=== PATIENT | male | born 1930 | race Caucasian/White ===

== ENCOUNTER 2018-08-16 11:35 | Inpatient (IN) ==
[2018-08-16] MEDS ORDERED: NS 1,000 ML IV PRN (12:12)
--- NOTE | 2018-08-16 12:30 | Diag Imaging Result Doc PS360 ---
EXAM: CHEST-PORTABLE 08/16/2018 HISTORY: stroke like symptoms TECHNIQUE: AP upright sitting at 1228 COMMENT: There is a left upper lobe parahilar mass which was not present on 01/01/2017. There is a calcified granuloma in the left lower lobe. In retrospect, the CT of the thoracic spine dated 08/08/2018 demonstrated subcarinal and aorticopulmonary window adenopathy is not stenosis of the left upper lobe bronchus. 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 Electronically signed by Jose Larkin 08/16/2018 12:27 PM
--- NOTE | 2018-08-16 12:32 | EKG Report ---
Test Performed on : 08/16/2018 12:27:05 PM Test Reason : Stroke like symptoms Blood Pressure : / mmHG Vent. Rate : 067 BPM Atrial Rate : 067 BPM P-R Int : 188 ms QRS Dur : 130 ms QT Int : 420 ms P-R-T Axes : 076 -66 050 degrees QTc Int : 443 ms Sinus rhythm. with premature atrial complexes. Right bundle branch block Left anterior fascicular block Bifascicular block Abnormal ECG When compared with ECG of 01-JAN-2017 14:09, No significant change was found Unconfirmed Result
--- NOTE | 2018-08-16 12:33 | Diag Imaging Result Doc PS360 ---
EXAM: CT HEAD W/O CONTRAST 08/16/2018 HISTORY: facial droop TECHNIQUE: This exam was performed using automated exposure control, adjustment of mA or kV according to patient size, and/or use of iterative reconstruction technique. COMMENT: There are calcifications in the basal ganglia bilaterally. There is extensive abnormal lucency in the periventricular white matter particularly in the frontal lobes. There is mild generalized cerebral atrophy. There is no evidence of mass effect, bleed, or abnormal extra-axial fluid collection. Compared to 04/13/2015 the appearance the brain has not changed appreciably. Given the findings on the plain radiograph of the chest, further evaluation with contrast and/or MRI is recommended. IMPRESSION: No definite evidence of acute intracranial disease. Further evaluation with MRI with contrast is recommended. Electronically signed by Jose Larkin 08/16/2018 12:31 PM
[2018-08-16 12:54] LABS: BASO# 0.03 X1000 (0.0-0.2); BASO% 0.5 % (0.0-0.8); EOS% 6.1 % (0.0-10.0); HEMATOCRIT 40.6 % (42.0-52.0); HEMOGLOBIN 13.3 g/dL (14.0-18.0); IMM GRAN# 0.02 X1000 (0.0-0.04); IMM GRAN% 0.3 % (0.0-0.5); LYMPH# 2.07 X1000 (1.2-3.4); LYMPH% 31.5 % (20.5-51.1); MCH 31.2 PG (27-31); MCHC 32.8 g/dL (33-37); MCV 95.3 FL (81-99); MONO# 0.56 X1000 (0.11-0.59); MONO% 8.5 % (1.7-9.3); MPV 10.6 FL (7.4-10.4); NEUT% 53.1 % (42.2-75.2); PLT 216 X1000 (130-400); RBC 4.26 XMIL (4.7-6.1); WBC 6.58 X1000 (4.8-10.8)
[2018-08-16 13:02] LABS: URINE SOURCE CLEAN CATCH
[2018-08-16 13:03] LABS: INR 1.01; PROTIME 14.1 Seconds (11.0-16.0)
[2018-08-16 13:04] LABS: PTT 29.3 Seconds (22.3-41.8)
[2018-08-16 13:08] LABS: BILIRUBIN URINE NEGATIVE (NEGATIVE); BLOOD URINE NEGATIVE (NEGATIVE); COLOR YELLOW; GLUCOSE URINE TRACE mg/dL (NEGATIVE); KETONE URINE NEGATIVE (NEGATIVE); LEUKOCYTES URINE NEGATIVE (NEGATIVE); NITRITE URINE NEGATIVE (NEGATIVE); PROTEIN URINE 100 mg/dL (NEGATIVE); SP GRAVITY URINE 1.017; TURBIDITY URINE CLEAR (CLEAR); UROBILINOGEN URINE NORMAL (NORMAL)
[2018-08-16 13:09] LABS: UR EPITHELIAL CELLS <10 /HPF (<10); URINE BACTERIA NEGATIVE /HPF; URINE RBC <10 /HPF (<10); URINE WBC <10 /HPF (<10)
[2018-08-16 13:23] LABS: UR AMPHETAMINES QUAL NONE DETECTED (NONE DETECT); UR BARBITUATES QUAL NONE DETECTED (NONE DETECT); UR BENZODIAZEPIN QUAL NONE DETECTED (NONE DETECT); UR CANNABINOIDS QUAL NONE DETECTED (NONE DETECT); UR COCAINE QUAL NONE DETECTED (NONE DETECT); UR METHADONE QUAL NONE DETECTED (NONE DETECT); UR OPIATES QUAL NONE DETECTED (NONE DETECT); UR OXYCODONE QUAL PRESUMPTIVE POSITIVE (NONE DETECT); UR PCP QUAL NONE DETECTED (NONE DETECT)
[2018-08-16 13:36] LABS: AGAP 9; ALB/GLOB RATIO 1.4; ALBUMIN 3.9 g/dL (3.5-5.0); ALKALINE PHOSPHATASE 41 U/L (32-122); BUN 19 mg/dL (8-22); CHLORIDE 104 mmol/L (98-107); COSMO 285; CREATININE 1.1 mg/dL (0.7-1.2); ESTIMATED GFR > 60; GLUCOSE 159 mg/dL (70-104); GOT 33 U/L (10-34); GPT 20 U/L (10-44); POTASSIUM 4.6 mmol/L (3.5-5.1); SODIUM 140 mmol/L (136-145); TCO2 27 mmol/L (25-35); TOTAL BILIRUBIN 0.57 mg/dL (0.20-1.00); TOTAL PROTEIN 6.6 g/dL (6.3-8.3)
--- NOTE | 2018-08-16 14:30 | PROVIDER DOCUMENTATION ---
This chart was entered by Su Amador Scribe, acting as scribe for José Miguel Ellis MD. HPI-Neurological Disorder - General Chief Complaint: Stroke-Like Symptoms Stated Complaint: POSSIBLE STOKE Time Seen by Provider: 08/16/18 11:39 Source: patient, family (daughter) Allergies/Adverse Reactions: Patient Allergies Allergy/AdvReac Type Severity Reaction Status Date / Time No Known Allergies Allergy Verified 08/16/18 12:13 Home Medications: Home Medication List Medication Instructions Recorded Confirmed Last Taken Type Aspirin 81 mg PO DAILY 12/07/13 08/16/18 08/16/18 History Fenofibrate 160 mg PO DAILY 12/07/13 08/16/18 08/16/18 History Glimepiride 4 mg PO BID 12/07/13 08/16/18 08/16/18 History Oxycodone HCl/Acetaminophen 10 mg PO Q6H PRN PRN 12/07/13 08/16/18 01/01/17 History [Oxycodon-Acetaminophen 7.5-325] Potassium Chloride 20 meq PO BID 12/07/13 08/16/18 08/16/18 History SIMVAstatin [Zocor] 40 mg PO QHS 12/07/13 08/16/18 08/15/18 History Trazodone [Desyrel] 200 mg PO QHS 12/07/13 08/16/18 08/16/18 History Losartan Potassium 100 mg PO DAILY #30 tablet 01/04/14 08/16/18 08/16/18 Rx Metoprolol [Lopressor] 25 mg PO BID 04/14/15 08/16/18 08/16/18 History Montelukast [Singulair] 10 mg PO DAILY 04/14/15 08/16/18 08/16/18 History Tizanidine [Zanaflex] 2 mg PO QHS 01/01/17 08/16/18 08/15/18 History Fexofenadine [Luz] 1 tab PO DAILY 08/16/18 08/16/18 08/16/18 History Furosemide 1 tab PO DAILY 08/16/18 08/16/18 Unknown History Gabapentin 1 tab PO DAILY 08/16/18 08/16/18 08/16/18 History Hydrochlorothiazide 1 tab PO DAILY 08/16/18 08/16/18 08/16/18 History Omeprazole [Prilosec] 1 tab PO DAILY 08/16/18 08/16/18 08/16/18 History - History of Present Illness-Neuro Nature of Presenting Problem: 87 yowm presents to the ed with c/o aphasia, drooling from left side of mouth, abdominal pain with nausea onset 3 days prior with intermittent of sx. pt has chronic pain, allergies and [place]. pt on exam has no difficulty of speechand does have mild flattening of facial groove on rt side. no drooling is seen. pt is nontoxic in appearance ` Headache Location: reports: global (chronic per pt. is no worse then normal [place]) Severity: reports: mild Onset/Duration: reports: 3 days ago Timing: reports: intermittent Context: reports: impaired speech Character of Altered Mental Status: reports: trouble concentrating Any recent trauma/injury?: reports: none Character of Deficits: reports: impaired speech New weakness or altered sensation location:: reports: none Cognitive Baseline: alert, oriented x3 Gait Baseline: walks without assistance Associated Symptoms: reports: short of breath, headache, nausea. denies: decreased ability to walk or stand, chest pain, neck/back pain, fever/chills, numbness in legs/feet, paresthesia, diaphoretic, slurred speech (aphasia), vomiting, weakness Similar Symptoms Previously?: No Recently seen or treated by another doctor?: No Review of Systems - Adult - REVIEW OF SYSTEMS - ADULT Constitutional: denies: chills, fever Eyes: reports: no symptoms reported Ears, Nose, Mouth & Throat: reports: no symptoms reported Cardiovascular: reports: irregular heart rate. denies: chest pain, palpitations Respiratory: reports: see HPI, shortness of breath. denies: cough, wheezing Gastrointestinal: reports: see HPI, abdominal pain, nausea. denies: diarrhea, vomiting Genitourinary: reports: no symptoms reported Musculoskeletal: denies: back pain, neck pain Integumentary: reports: no symptoms reported Neurological: reports: see HPI, headache/migraines (chronic). denies: ataxia, dizziness/vertigo, loss of balance, slurred speech (apasia), syncope, tremors Psychiatric: reports: no symptoms reported Endocrine: reports: no symptoms reported Hematologic/Lymphatic: reports: no symptoms reported Allergic/Immunologic: reports: no symptoms reported All Other Systems: Reviewed and Negative Past History - Adult - PAST MEDICAL HISTORY-ADULT Review of Records: reports: Old Records Reviewed, Nursing Assessment Review, Medications Reviewed, Social history reviewed & non-contributory. Major Childhood Illnesses: reports: denies history Cardiovascular: reports: CAD, HTN, hyperlipidemia Respiratory: reports: denies history Gastrointestinal: reports: GERD Genitourinary: reports: denies history Musculoskeletal: reports: arthritis, chronic pain, neck/back injury Neurological: reports: denies history Psychiatric: reports: denies history Endocrine/Immune: reports: Diabetes Diabetes Type: Type 2 Other Conditions: reports: deaf/hard of hearing - PRIOR SURGERIES/PROCEDURES Surgical/Procedure History: reports: cholecystectomy, back/neck (back x2) - PRIOR HOSPITALIZATIONS Prior Hospitalizations: reports: for similar symptoms - IMMUNIZATION STATUS Childhood Immunizations: See Nurse Assessment Flu Vaccine: See Nurse Assessment - FAMILY HISTORY Family History: reviewed, not pertinent - SOCIAL HISTORY Smoking: quit greater than 1 year Substance Use: denies Alcohol Use Frequency: never Living Situation: alone Physical Exam- Neurological - Physical Exam-Neuro Initial Vital Signs Reviewed: Yes General Appearance: appears well, alert, no apparent distress, obese Eye Exam: bilateral eye: normal inspection, PERRL, EOMI HENMT: normocephalic/atraumatic, moist mucous membranes, normal ENT inspection Head Injury: no evidence of injury Neck: non-tender, full range of motion, supple Respiratory: chest non-tender, lungs clear, normal breath sounds Cardiovascular: no JVD, irregularly irregular Abdominal Exam: normal bowel sounds, non tender, soft Lymphatic: no adenopathy Extremity: normal range of motion, non-tender, normal gait, normal inspection, normal capillary refill, 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 stable 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 Exam: normal hearing (hard of hearing but at baseline), normal speech (pt had aphasia yesterday and this am but has resolved on exam), PERRL Coordination/Gait: normal finger to nose Motor/Sensory: no motor deficit, no sensory deficit, no pronator drift Neurologic: 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 II-XII nml as tested, grossly normal, no motor/sensory deficits Integumentary: normal color, normal turgor, warm/dry Psych/Mental Status: normal mood/affect, normal thought content, normal thought process, oriented x 3 - Glascow Coma Scale Best Eye Response: (4) open spontaneously Best Verbal Response: (5) oriented Best Motor Response: (6) obeys commands Total Glascow Score: 15 Progress - PLAN OF CARE/RESULTS Progress/Plan/Lab Results: Vital Signs - 8 hr 08/16/18 11:37 08/16/18 11:53 08/16/18 11:54 Temperature 97.8 F Pulse Rate 63 Respiratory Rate 18 Blood Pressure 189/81 191/87 O2 Sat by Pulse Oximetry 96 97 96 Laboratory Results - last 24 hr 08/16/18 08/16/18 08/16/18 12:39 12:39 12:39 WBC 6.58 RBC 4.26 L Hgb 13.3 L Hct 40.6 L MCV 95.3 MCH 31.2 H MCHC 32.8 L RDW Std Deviation 13.0 Plt Count 216 MPV 10.6 H Immature Gran % (Auto) 0.3 Neut % (Auto) 53.1 Lymph % (Auto) 31.5 [place] % (Auto) 8.5 Eos % (Auto) 6.1 Baso % (Auto) 0.5 Immature Gran # (Auto) 0.02 Neut # (Auto) 3.50 Lymph # (Auto) 2.07 [place] # (Auto) 0.56 Eos # (Auto) 0.40 Baso # (Auto) 0.03 PT 14.1 INR 1.01 PTT (Actin FS) 29.3 Sodium 140 Potassium 4.6 Chloride 104 Carbon Dioxide 27 Anion Gap 9 BUN 19 Creatinine 1.1 Estimated GFR/1.73 m2 > 60 BUN/Creatinine Ratio 17 Glucose 159 H POC Glucose Calculated Osmolality 285 Calcium 9.0 Total Bilirubin 0.57 AST 33 ALT 20 Alkaline Phosphatase 41 Troponin T Total Protein 6.6 Albumin 3.9 Globulin 2.7 Albumin/Globulin Ratio 1.4 Urine Source Urine Color Urine Turbidity Urine pH Ur Specific [place] Urine Protein Ur Glucose (Stick) Ur Ketones (Stick) Urine Blood Urine Nitrite Urine Bilirubin Urobilinogen Dipstick Urine Leukocytes Urine WBC (Auto) Urine RBC (Auto) U Epithel Cells (Auto) Urine Bacteria (Auto) Urine Opiates Screen Ur Oxycodone Screen Ur Methadone, Qual Ur Barbiturates Screen Ur Phencyclidine Scrn Ur Amphetamines Screen U Benzodiazepines Scrn Urine Cocaine Screen U Cannabinoids Screen 08/16/18 08/16/18 08/16/18 12:39 12:45 12:55 WBC RBC Hgb Hct MCV MCH MCHC RDW Std Deviation Plt Count MPV Immature Gran % (Auto) Neut % (Auto) Lymph % (Auto) [place] % (Auto) Eos % (Auto) Baso % (Auto) Immature Gran # (Auto) Neut # (Auto) Lymph # (Auto) [place] # (Auto) Eos # (Auto) Baso # (Auto) PT INR PTT (Actin FS) Sodium Potassium Chloride Carbon Dioxide Anion Gap BUN Creatinine Estimated GFR/1.73 m2 BUN/Creatinine Ratio Glucose POC Glucose 157 H Calculated Osmolality Calcium Total Bilirubin AST ALT Alkaline Phosphatase Troponin T < 0.010 Total Protein Albumin Globulin Albumin/Globulin Ratio Urine Source CLEAN CATCH Urine Color YELLOW Urine Turbidity CLEAR Urine pH 7.0 Ur Specific [place] 1.017 Urine Protein 100 A Ur Glucose (Stick) TRACE Ur Ketones (Stick) NEGATIVE Urine Blood NEGATIVE Urine Nitrite NEGATIVE Urine Bilirubin NEGATIVE Urobilinogen Dipstick NORMAL Urine Leukocytes NEGATIVE Urine WBC (Auto) <10 Urine RBC (Auto) <10 U Epithel Cells (Auto) <10 Urine Bacteria (Auto) NEGATIVE Urine Opiates Screen Ur Oxycodone Screen Ur Methadone, Qual Ur Barbiturates Screen Ur Phencyclidine Scrn Ur Amphetamines Screen U Benzodiazepines Scrn Urine Cocaine Screen U Cannabinoids Screen 08/16/18 12:55 WBC RBC Hgb Hct MCV MCH MCHC RDW Std Deviation Plt Count MPV Immature Gran % (Auto) Neut % (Auto) Lymph % (Auto) [place] % (Auto) Eos % (Auto) Baso % (Auto) Immature Gran # (Auto) Neut # (Auto) Lymph # (Auto) [place] # (Auto) Eos # (Auto) Baso # (Auto) PT INR PTT (Actin FS) Sodium Potassium Chloride Carbon Dioxide Anion Gap BUN Creatinine Estimated GFR/1.73 m2 BUN/Creatinine Ratio Glucose POC Glucose Calculated Osmolality Calcium Total Bilirubin AST ALT Alkaline Phosphatase Troponin T Total Protein Albumin Globulin Albumin/Globulin Ratio Urine Source Urine Color Urine Turbidity Urine pH Ur Specific [place] Urine Protein Ur Glucose (Stick) Ur Ketones (Stick) Urine Blood Urine Nitrite Urine Bilirubin Urobilinogen Dipstick Urine Leukocytes Urine WBC (Auto) Urine RBC (Auto) U Epithel Cells (Auto) Urine Bacteria (Auto) Urine Opiates Screen NONE DETECTED Ur Oxycodone Screen PRESUMPTIVE POSITIVE A Ur Methadone, Qual NONE DETECTED Ur Barbiturates Screen NONE DETECTED Ur Phencyclidine Scrn NONE DETECTED Ur Amphetamines Screen NONE DETECTED U Benzodiazepines Scrn NONE DETECTED Urine Cocaine Screen NONE DETECTED U Cannabinoids Screen NONE DETECTED Orders Category Date Time Status Cardiac Monitoring DIRECTED Care 08/16/18 12:12 Active Finger Stick Blood Sugar (ED) DIRECTED Care 08/16/18 12:12 Active Misc. NRSG Communication Order DIRECTED Care 08/16/18 12:12 Active Saline Loc NOW Care 08/16/18 12:12 Active CHEST-PORTABLE [RAD] Stat Exams 08/16/18 12:[address] HEAD W/O CONTRAST [CT] Stat Exams 08/16/18 12:15 Completed CBC WITH ELECTRONIC DIFF [HEME] Stat Lab 08/16/18 12:39 Completed COMPREHENSIVE METABOLIC PANEL [CHEM] Stat Lab 08/16/18 12:39 Completed PROTIME WITH INR [COAG] Stat Lab 08/16/18 12:39 Completed PTT [COAG] Stat Lab 08/16/18 12:39 Completed TROPONIN T Stat Lab 08/16/18 12:39 Completed URINALYSIS W/POSS RFLX CULT [URINALYSIS] Stat Lab 08/16/18 12:55 Completed URINE DRUG SCREEN Stat Lab 08/16/18 12:55 Completed 0.9% Sodium Chloride Inj [Ns] 1,000 ml Med 08/16/18 12:12 Active IV 75 mls/hr EKG [EKG] Stat Ther 08/16/18 12:12 Draft Result Diagrams: 08/16/18 12:39 08/16/18 12:39 - REASSESSMENT Reassessment #1 Time Reassessed: 12:33 (pt is in no distress) Status: improving Reassessment #2 Time Reassessed: 14:02 (pt is resting in bed) Status: unchanged - EKG 1 Time of EKG reading by physician:: 12:27 EKG Read and Signed by:: José Miguel Ellis EKG Interpretation (*Must complete 3 of following elements*): Abnormal Rate: 67 Rhythm: SR with PAC [place]: normal QRS: RBB, other (LAFB) NM Interval: normal ST Wave: normal Comments: bifascicular block - XRAY 1 XRAY: Bilateral XRAY Study: Chest Impression: See EMR Report (EXAM: CHEST-PORTABLE 08/16/2018 HISTORY: stroke like symptoms TECHNIQUE: AP upright sitting at 1228 COMMENT: There is a left up per lobe parahilar mass which was not present on 01/01/2017. There is a calcified granuloma in the left lower lobe. In retrospect, the CT of the thoracic spine dated 08/08/2018 demonstrated subcarinal and aorticopulmonary window adenopathy is not stenosis of the left upper lobe bronchus. 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 Electronically signed by Jose Larkin 08/16/2018 12:27 PM 08/16/18 1227 Interpreting Physician: Jose Larkin MD Dictated Date/Time: 08/16/18 1223 cc: José Miguel Ellis MD; Adrianne Thorpe MD) - CT/MRI 1 CT Study: Head Impression: See EMR Report (EXAM: CT HEAD W/O CONTRAST 08/16/2018 HISTORY: facial droop TECHNIQUE: This exam was performed using automated exposure control, adjustment of mA or kV according to patient size, and/or use of iterative reconstruction technique. COMMENT: There are calcifications in the basal ganglia bilaterally. There is extensive abnormal lucency in the periventricular white matter particularly in the frontal lobes. There is mild generalized cerebral atrophy. There is no evidence of mass effect, bleed, or abnormal extra-axial fluid collection. Compared to 04/13/2015 the appearance the brain has not changed appreciably. Given the findings on the plain radiograph of the chest, further evaluation with contrast and/or MRI is recommended. IMPRESSION: No definite evidence of acute intracranial disease. Further e valuation with MRI with contrast is recommended. Electronically signed by Jose Larkin 08/16/2018 12:31 PM 08/16/18 1231 Interpreting Physician: Jose Larkin MD Dictated Date/Time: 08/16/18 1229 cc: José Miguel Ellis MD; Adrianne Thorpe MD) - CONSULTS/PCP/HOSPITALIST Notification #1 *Consult/PCP/Hospitalist*: hospitalist Time Discussed: 14:18 Consult Disposition: Admit Departure - Departure Date of Disposition Decision: 08/16/18 Time of Disposition Decision: 13:00 DIAGNOSIS: Lung mass, Brain metastasis Disposition: ADMITTED INPATIENT 09 Certified Medical Emergency: Emergent Condition: Good Referrals and Follow-Ups: Adrianne Thorpe MD [Primary Care Provider] - - Critical Care Note This patient required my direct & personal management of CC.: No Attestation - Physician/ MARYCHUY Attestation Patient care was provided by Advanced Practice Provider:: No The physician spent face to face time with patient:: Yes Advanced Practice Provider documentation review:: Supervising physician onsite and consulted in the evaluation and care of this patient. The physician did have a face to face encounter with the patient. - NIH Stroke Scale NIH Type: Initial Evaluation Level of Consciousness: 0-Alert LOC Questions (ask month and age): 0-Answers Both Correctly LOC Commands (ask to open & close eyes;make a fist, let go): 0-Obeys Both Correctly Best Gaze (horizontal eye movement): 0-Normal Visual (use finger movement, counting or visual threat): 0-No Visual Loss Facial Palsy (show teeth or raise eyebrows & close eyes tght: 1-Minor Paralysis Motor Function-left arm: 0-Normal Motor Function-right arm: 0-Normal Motor Function-left le-Normal Motor Function-right le-Normal Limb Ataxia(mpinni-wkgm-dwxjcr, or heel to mccain): 0-No Ataxia Sensory(pin prick to face,arms,trunk,legs-compare side/side): 0-No Ataxia Best Language(name item/read sentence.Ex-Down to Earth): 0-No Aphasia Dysarthria(Pt read words or say words Ex.Mama,Tip-Top,Thanks: 1-Mild-Mod Slurring Words Extinction and Inattention: 0-Normal Stroke tPA Guidelines - Inclusion Criteria for IV tPA 18 years old or older: Yes Ischemic stroke with measurable deficit: Yes Onset <3 hours ago *OR* 3-4.5 hours ago: No - Exclusion Criteria for IV tPA Evidence of intracranial hemorrhage on CT: No Presentation suggest SAH: No CT reveals defined area of hypodensity: Yes This chart was documented by the indicated scribe, (Su Amador Scribe) and accurately reflects the services I performed and decisions made by me, José Miguel Ellis MD, as attested by the provider's signature.
--- NOTE | 2018-08-16 15:27 | Diag Imaging Result Doc PS360 ---
CT THORAX W/CONTRAST - 08/16/2018 INDICATION: lung mass COMPARISON: None FINDINGS: There is a large left hilar mass. This measures 7.6 x 6.3 cm. There is left paratracheal and pretracheal lymphadenopathy. There is also anterior and superior mediastinal lymphadenopathy. Upper abdominal images are unremarkable. There are apparent cholecystectomy clips. There is a calcified granuloma in the left lower lobe. There is diffuse COPD with chronic bronchitis. There is a faint nodular infiltrate in the left upper lobe, that measures about 9 mm. There is also a hazy groundglass nodule in the right upper lobe. This measures only about 7 mm. There are moderate degenerative changes of the spine. No acute or suspicious bony lesion. IMPRESSION: Advanced primary lung cancer. This exam was performed using automated exposure control, adjustment of mA or kV according to patient size, and/or use of iterative reconstruction technique Electronically signed by Marcial Wong 08/16/2018 3:24 PM
--- NOTE | 2018-08-16 15:38 | Diag Imaging Result Doc PS360 ---
MRI BRAIN W/WO CONTRAST - 08/16/2018 INDICATION: r/o mass COMPARISON: Head CT from earlier today FINDINGS: There is a small focal area of restricted diffusion in the left insular cortex. This likely indicates a small recent infarction. There is diffuse cerebral atrophy and advanced periventricular white matter chronic microvascular disease. No intracranial mass or hemorrhage. No abnormal contrast enhancement. IMPRESSION: 1. Tiny recent infarction in the left insular cortex. 2. Moderately advanced cerebral atrophy and chronic microvascular disease. Electronically signed by Marcial Wong 08/16/2018 3:36 PM
[2018-08-16] MEDS ORDERED: ZOFRAN IV PRN (16:17)
[2018-08-16] MEDS ORDERED: MORPHINE IV PRN (16:17)
[2018-08-16] MEDS: PERCOCET-10 PO PRN (17:15)
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
--- NOTE | 2018-08-16 17:57 | HISTORY AND PHYSICAL ---
PRIMARY CARE PROVIDER: Dr. Thorpe. CHIEF COMPLAINT: Slurred speech. HISTORY OF PRESENT ILLNESS: Mr. Robert Vega is an 87-year-old male with a medical history of diabetes mellitus type 2, GERD, hypertension, anxiety disorder, and apparently a left- sided stroke in 1985, who comes in with complaints of speech difficulty since yesterday evening. He has not noticed any other neurological symptoms except for he has a left frontal headache. An MRI revealed that he does have a small left-sided infarct, and it is potentially causing him to stutter with some of his words. Otherwise, there are no other neurological changes. We also found on a chest x-ray that he has a left upper lobe bronchogenic carcinoma that was found on chest x-ray and confirmed with CAT scan. He has complained of a thick cough that he cannot really seem to get phlegm up. He said that has been going on for at least 3 or 4 years, shortness of breath for 3 or 4 years. He has also noted some on and off wheezing for the last year. We will admit him to further evaluate the mass that was found and work him up for stroke. PAST MEDICAL HISTORY: 1. Diabetes mellitus, type 2. 2. Hypertension. 3. Anxiety disorder. 4. Hyperlipidemia. 5. Left CVA without residual 1986. 6. GERD. 7. Skin cancers. SURGICAL HISTORY: 1. Three back surgeries. 2. Cholecystectomy. 3. Bilateral cataract surgery. SOCIAL HISTORY: Quit smoking 30+ years ago. Also quit drinking 30+ years ago but prior to that he was a 2-1/2 pack per day smoker since the age of 10 and was a weekend drinker, but essentially no alcohol in the last 30 years. Denies any illicit drug use. He lives at home alone. He is essentially able to perform all ADLs, except he does not drive any more. FAMILY HISTORY: On his mother's side of the family no medical conditions that he can remember. His father had coronary disease and high blood pressure. ALLERGIES: No known drug allergies. HOME MEDICATIONS: 1. Trazodone 200 mg p.o. nightly. 2. Zanaflex 2 mg p.o. nightly. 3. Simvastatin 40 mg p.o. nightly. 4. Luz 180 mg p.o. daily. 5. Aspirin 81 mg p.o. daily. 6. Fenofibrate 160 mg p.o. daily. 7. Lasix 40 mg p.o. daily. 8. Neurontin 300 mg p.o. daily. 9. Glimepiride 4 mg p.o. twice daily. 10. Hydrochlorothiazide 25 mg p.o. daily. 11. Lopressor 25 mg p.o. twice daily. 12. Percocet 10 p.o. every 6 hours p.r.n. 13. Potassium chloride 20 mEq p.o. twice daily. 14. Prilosec 40 mg p.o. daily. 15. Singulair 10 mg p.o. daily. 16. Losartan potassium 100 mg p.o. daily. REVIEW OF SYSTEMS: A 14 point review of systems is complete and all are negative except those mentioned above HPI. He has had right shoulder pains. He has had a weight loss of 25+ pounds over the last 6 months. He does have shortness of breath. He has a left frontal headache, occasional chest pain, wheezes for year, a cough that is difficult to produce phlegm, but occasionally it is white and that has been going on for 3 to 4 years. He does have the occasional nocturnal sweats. He freezes most of the time. He has nausea frequently. He denies any bowel problems. PHYSICAL EXAMINATION: VITAL SIGNS: Temperature 97.8 degrees, heart rate 79, respiratory rate 20, blood pressure 176/80, O2 saturation 98% on room air. GENERAL: Mr. Robert Vega is an 87-year-old male, who is in no acute distress and is able answer questions appropriately. HEENT: Atraumatic, normocephalic. Pupils equal, round, and reactive to light. Extraocular movements intact. Mucous membranes are moist. NECK: Trachea midline. CARDIOVASCULAR: S1, S2. Regular rate and rhythm. No rubs, gallops, murmurs. No lower extremity edema. +2 dorsalis and radial pulses. Negative JVD or carotid bruits. PULMONARY: Decreased in the bases. Mild wheezing noted. No accessory muscle use or work of breathing. GASTROINTESTINAL: Soft, nontender, nondistended. Positive bowel sounds x4. EXTREMITIES: Moves all extremities equally with decreased range of motion. NEUROLOGICAL: A and O x3. Follows commands. Sensory is intact. He does have a stutter with his speech, but no aphasia noted. SKIN: Warm, dry, intact. There is an abrasion on the left wrist area. LABORATORY DATA: White blood cells 6000, hemoglobin 13, hematocrit 40, platelet count 216,000. INR is 1.01, PTT 29.3. Sodium 140, potassium 4.6, BUN 19, creatinine is 1.1, glucose 159, calcium 9.0, bilirubin 0.57, AST 33, ALT 20. Troponin less than 0.01. Albumin 3.9. Carcinoembryonic antigen 2.10. Urinalysis 100 protein. Urine drug screen positive for oxycodone. IMAGING: Chest x-ray: Bronchogenic carcinoma in the left upper lobe. Head CT: No definite evidence of acute intracranial disease. Brain MRI: Tiny recent infarction in the left insular cortex. Moderately advanced cerebral atrophy and chronic microvascular disease. Chest CT: Advanced primary lung cancer. ASSESSMENT AND PLAN: 1. Recent tiny cerebral infarction located in the left insular cortex with associated speech difficulties and left frontal headache. We will follow up on neurological checks, lipid panel, echocardiogram. We will keep him on Lipitor, aspirin, and we will allow for permissive hypertension. We will also do some IV fluid hydration. 2. A new left upper lobe lung mass with high suspicion for carcinoma. Pulmonology Dr. Arce has been consulted. The patient denies history of COPD. He quit smoking over 30 years ago, but he was a pretty heavy smoker since the age of 10 prior to that. He is having difficulty getting a productive cough up. He is unable to cough it out so we will have Mucinex. We will do albuterol/Atrovent nebulizers every 6 hours while awake. Singulair for allergies. Oxygen as needed. We will likely need a biopsy of the mass to determine what it is specifically. 3. Diabetes mellitus, type 2. We will do pattern blood glucoses, sliding scale insulin. 4. Gastroesophageal reflux disease. Continue with proton pump inhibitor. 5. Hyperlipidemia. Continue statin. 6. Hypertension. Holding the hydrochlorothiazide for now to allow for permissive hypertension. 7. Deep venous thrombosis prophylaxis. SCDs. Dictated by DENISE Edwards for Bobby Vogel MD cc: DENISE Edwards MD
[2018-08-16] MEDS ORDERED: LOPRESSOR PO SCH (21:00)
[2018-08-16] MEDS ORDERED: ZOCOR PO SCH (21:00)
[2018-08-16] MEDS ORDERED: ZANAFLEX PO SCH (21:00)
[2018-08-16] MEDS ORDERED: DESYREL PO SCH (21:00)
[2018-08-16] MEDS ORDERED: LIPITOR PO SCH (21:00)
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
[2018-08-16] MEDS: MUCINEX PO SCH (21:36)
[2018-08-16] MEDS: AMARYL PO SCH (21:37)
[2018-08-16] MEDS: HUMULIN R SUBQ SCH (21:37)
[2018-08-16] MEDS: DUONEB (A & A) INH SCH (22:30)
[2018-08-17] MEDS: PERCOCET-10 PO PRN ×2 (05:26→11:40)
[2018-08-17] MEDS: HUMULIN R SUBQ SCH ×2 (06:04→11:05)
--- NOTE | 2018-08-17 06:55 | EKG Report ---
Test Performed on : 08/16/2018 8:07:09 PM Test Reason : A. Flutter per tele Blood Pressure : / mmHG Vent. Rate : 078 BPM Atrial Rate : 078 BPM P-R Int : 154 ms QRS Dur : 134 ms QT Int : 398 ms P-R-T Axes : 000 -75 045 degrees QTc Int : 453 ms Sinus rhythm. with premature atrial complexes. Right bundle branch block Left anterior fascicular block Bifascicular block ST depression in Inferior leads Abnormal ECG When compared with ECG of 16-AUG-2018 12:27, (Unconfirmed) ST now depressed in Inferior leads Confirmed by Miquel Gautam MD ([id number]) on 08/17/2018 6:01:24 PM
[2018-08-17] MEDS ORDERED: PRILOSEC PO SCH (07:00)
[2018-08-17 08:30] LABS: BASO# 0.04 X1000 (0.0-0.2); BASO% 0.5 % (0.0-0.8); EOS# 0.18 X1000 (0.0-0.7); EOS% 2.4 % (0.0-10.0); HEMOGLOBIN 11.8 g/dL (14.0-18.0); IMM GRAN# 0.02 X1000 (0.0-0.04); IMM GRAN% 0.3 % (0.0-0.5); LYMPH# 2.26 X1000 (1.2-3.4); LYMPH% 30.7 % (20.5-51.1); MCH 31.1 PG (27-31); MCHC 32.8 g/dL (33-37); MONO# 0.82 X1000 (0.11-0.59); MONO% 11.1 % (1.7-9.3); MPV 10.9 FL (7.4-10.4); NEUT# 4.05 X1000 (1.4-6.5); PLT 214 X1000 (130-400); RBC 3.79 XMIL (4.7-6.1); RDW 13.1 % (11.5-14.5); WBC 7.37 X1000 (4.8-10.8)
[2018-08-17 08:46] LABS: AGAP 9; BUN 17 mg/dL (8-22); CALCIUM 8.4 mg/dL (8.8-10.2); CHLORIDE 106 mmol/L (98-107); CHOLESTEROL 93 mg/dL (0-200); COSMO 281; ESTIMATED GFR > 60; GLUCOSE 107 mg/dL (70-104); HDL 31 mg/dL (35-55); LDL 44 mg/dL; POTASSIUM 3.7 mmol/L (3.5-5.1); SODIUM 140 mmol/L (136-145); TCO2 25 mmol/L (25-35); TRIGLYCERIDES 88 mg/dL (39-160); VLDL 18 mg/dL
[2018-08-17] MEDS ORDERED: COZAAR PO SCH (09:00)
[2018-08-17] MEDS ORDERED: LOFIBRA PO SCH (09:00)
[2018-08-17] MEDS ORDERED: ALLEGRA PO SCH (09:00)
[2018-08-17] MEDS ORDERED: NEURONTIN PO SCH (09:00)
[2018-08-17] MEDS ORDERED: ASPIRIN PO SCH (09:00)
[2018-08-17] MEDS ORDERED: SINGULAIR PO SCH (09:00)
[2018-08-17] MEDS ORDERED: LASIX PO SCH ×2 (09:00→14:00)
[2018-08-17] MEDS: AMARYL PO SCH (09:53)
[2018-08-17] MEDS: MUCINEX PO SCH (09:53)
[2018-08-17] MEDS: DUONEB (A & A) INH SCH ×2 (10:05→15:09)
[2018-08-17 11:39] VITALS: BP 141/49
--- NOTE | 2018-08-17 11:40 | CONSULTATION ---
DATE OF CONSULTATION: 08/17/2018 Mr. Vega is 87 years old, and there is clinical and imaging evidence of stroke. History from the patient is that he noticed a little bit of trouble finding his words about 36 hours ago. The next morning, symptoms were similar but got worse through the day and he presented to the hospital. This morning, he is much improved, not quite back to normal. Daughter at the bedside reports problems yesterday were prominent and this morning she cannot identify definite trouble with communication. He did not ever have trouble understanding what was said to him. He reports chronic poor vision, with a sense of "skim over my eyes" transiently yesterday. He did not notice focal loss of visual field or a sense that skim was over one eye only. He has had some headaches recently, but headache was no worse than usual yesterday. There was no facial asymmetry, trouble with chewing or swallowing, focal weakness in the limbs. He believes that his gait was a little bit more unsteady than baseline yesterday. He reports "mini stroke" diagnosed about 40 years ago when he had transient facial droop, possibly on the left side. Otherwise, there is no history of stroke. He has never had any other neurologic event. He has not had recent head injury. He does not use ethanol. He quit smoking cigarettes more than 30 years ago. He had been advised to take aspirin in the past but was not taking his aspirin regularly recently. He was taking all of his other medicines correctly, by his report. Workup here includes brain MRI done with and without contrast showing tiny recent left insular infarction. He has had carotid ultrasound, but I do not see that report. Computer shows carotid ultrasound was normal in 2014. Initial systolic blood pressures were 180s-190s. Systolic blood pressures have ranged 130s-170s in the last 12 hours or so. On exam, Mr. Vega is awake, alert, and attentive. He seems appropriate. He is hard of hearing but communicates well when he can hear me. Speech is not significantly dysarthric. Language function is intact on bedside testing. I could not identify a definite language deficit. Remote memory is good. He is oriented. I did not test his cognitive function further. Head and neck are unremarkable. Visual cueva are full, tested grossly by confrontational finger counting. Facial motility is symmetric. Facial sensation is intact. Gag is intact. Tongue is midline. Shoulder shrug is good bilaterally. Strength is normal in the arms and legs. He did well on [id number] testing bilaterally. Reflexes are absent at the ankles, 1+ symmetrically at the wrists. I did not test his gait. IMPRESSION: Clinical and imaging evidence of small acute dominant subcortical left hemisphere infarction. History sounds like predominantly expressive dysphasia, with near- complete resolution now. His risk factors include age, hypertension, diabetes mellitus, dyslipidemia, and possible prior stroke. His visual symptoms are a little bit worrisome for amaurosis, although he did not report definite monocular symptoms. If carotid report is unremarkable, I will not have any further suggestion from neurologic standpoint. I encouraged him to be aggressive with management of his risk factors, to resume daily aspirin, and to keep followup with his primary clinic. I will be glad to see him again if needed. Thank you for asking Neurology to see Mr. Vega. cc: MD OWEN Chapa III
--- NOTE | 2018-08-17 15:40 | DISCHARGE SUMMARY ---
ADMISSION DATE: 08/16/2018 DISCHARGE DATE: 08/17/2018 SUBJECTIVE: The patient feels okay. No major complaints. It does sound like he wants to get treatment so we will continue to follow. OBJECTIVE: Vital Signs: Blood pressure is 141/49, heart rate of 71, respiratory rate 18, temperature 98.1 degrees. Cardiovascular: Regular rate and rhythm. Pulmonary: Bilateral breath sounds clear to auscultation. Gastrointestinal: Soft, nontender, nondistended. Bowel sounds were positive. LABORATORY DATA: White count is 7, hemoglobin 11, hematocrit 36 platelets 214,000. LDL was good at 44. PROBLEM LIST: 1. Acute ischemic CVA. He has had a small lacunar subcortical infarct with some dysphagia, which I think dysarthria which is really gone now. I appreciate Dr. Fox's intervention. We are still waiting on an echocardiogram and carotid, although preliminary carotid report was negative. In any case, the patient is well. He is very adamant about going home because he states, "The 18 of August tomorrow, and I may not be here for the next 18 of August," which is a concern. He is 87. He has a new lung mass which is most likely lung cancer, although I think today after discussion, he is willing to consider treatment if it is an option, which yesterday he was pretty adamant against it. We discussed that he will need a biopsy, and we really cannot do anything else besides that, but of course, he has had a stroke and I discussed with Dr. Fox. He says as soon as 3 or 4 days he could have conscious sedation. Dr. Arce, I think, is thinking at least a week to 2 weeks before we will consider bronchoscopy, which I think is reasonable, which brings us to problem #2. 2. Lung mass. He seems to be doing okay. Again, I am concerned this is cancer. We will pursue bronchoscopy once we get that situated. We will get a PT evaluation so that we can get him home. He did pretty well. He only walked 1 foot, but he did pretty well there, so I think we are probably going to consider letting him go home. DISCHARGE DIAGNOSES: 1. Acute ischemic cerebrovascular accident. 2. Lung mass with concern over pulmonary malignancy. 3. Hypertension. 4. Diabetes. PROCEDURES: None. IMAGING: MRI which showed a left insular cortical infarct. Chest CT which showed advanced primary lung cancer measuring 7 x 6 cm in the left hilum with COPD. CONSULTATIONS: 1. We have pulmonary consultation for bronchoscopy, recommended bronchoscopy in 1 to 2 weeks. 2. Neurology consultation recommended current treatment. We will continue treatment with aspirin 81 mg, Lipitor 40, Lasix 40, Prilosec 40, Klor-Con 20 b.i.d., Percocet, Lopressor 25 b.i.d., glimepiride 4 b.i.d., gabapentin 300 daily, fenofibrate 160 daily, Luz 180 daily, Zanaflex 2 at bedtime, trazodone 200 at bedtime. The patient is doing well. He has a nonfocal neurological exam. He would benefit from aspirin and Plavix, but I am not going to push that at this point. I would consider that after he has completed his biopsy, though, just because I think he had been on aspirin previously, so I may consider 325. I have switched his simvastatin to Lipitor just for a stronger statin therapy. We will work on discharging him home. FOLLOW-UP: He will need follow up with Dr. Arce in 1 to 2 weeks, we will try to set that up at discharge for bronchoscopy, and follow up with his PCP who is Dr. Thorpe. DISCHARGE INSTRUCTIONS: Return for any neurological change. COORDINATION TIME: A 32-minute discharge. cc: MD Nick Morin MD
--- NOTE | 2018-08-17 17:43 | ECHO REPORT ---
ORDER DATE: 08/16/2018 INTERPRETING PHYSICIAN: Kong Willingham MD INDICATION: An 87-year-old male with a stroke. Atrial fibrillation. M-MODE MEASUREMENTS: Left ventricle end diastole: 4.1 cm. Left ventricle end systole: 2.6 cm. Posterior wall: 1.1 cm. Interventricular septum: 1.3 cm. Left atrium: 4.2 cm. Aortic root diameter: 4.0 cm. SUMMARY OF 2-DIMENSIONAL IMAGIN. This study is difficult. The patient is in atrial fibrillation. 2. Left ventricular systolic function is excellent. Ejection fraction is estimated visually at 65% or even better. 3. The aortic valve shows a mild degree of sclerosis of the cusp. There is no stenosis. 4. The inferior vena cava is not dilated. 5. The interatrial septum shows increased mobility. 6. The mitral valve shows some calcification of the annulus. Color flow mapping indicates a mild degree of regurgitation. 7. The pulsed wave Doppler of mitral inflow shows a single filling wave. 8. The patient is in atrial fibrillation. 9. Diastolic function cannot be properly evaluated in this case. 10.Both atria are [id number]-[id number]-ucuwfvcbgn enlarged. 11.I do not see any convincing evidence of shunt across the interatrial septum by color flow mapping. 12.The pulmonic valve looks grossly normal. Color flow mapping indicates a mild degree of regurgitation. 13.The tricuspid valve shows a mild degree of regurgitation. 14.Pulmonary artery pressure is estimated at 38 mmHg. 15.There is no pericardial effusion and no sign of thrombus. 16.Agitated saline was injected, however, there was no convincing indication of shunt. cc: MD Bobby Hutchinson MD
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
--- NOTE | 2018-08-18 12:47 | Carotid Study ---
DATE: 08/16/2018 PROCEDURE: Carotid duplex study. REFERRING PHYSICIAN: Bobby Vogel MD READING PHYSICIAN: Hemant Garcia MD WELL LOGGING OPERATOR MUD ANALYSIS: Myriam Branham RVT INDICATION: TIA or stroke. COMPARISON STUDY: 12/07/2013. OBSERVED DATA RIGHT LEFT Brachial Blood Pressure Carotid Pulse Bruits: Carotid/Sub DIAGRAM OF ULTRASOUND IMAGING R L RIGHT INT EXT INT EXT LEFT Jose Guadalupe (cm/s) Jose Guadalupe (cm/s) Subclavian 93/0 Subclavian 129/0 CCA Proximal 75/10 CCA Proximal 82/9 CCA Distal 61/6 CCA Distal 95/10 Bulb 69/3 Bulb 89/8 ICA Proximal 55/10 ICA Proximal 95/16 ICA Mid 58/15 ICA Mid 64/12 ICA Distal 85/15 ICA Distal 71/21 ECA 69/7 ECA 93/0 Vertebral 60/14 Vertebral 46/8 ICA/CCA Ratio 1.1 ICA/CCA Ratio 1.0 % Stenosis 0%-39% % Stenosis 0%-39% FINDINGS: There is no significant plaque or turbulent flow in either carotid system. There is antegrade vertebral flow bilaterally. PHYSICIAN INTERPRETATION: Unremarkable carotid imaging study. This is unchanged from the prior study on 12/07/2013. cc: MD Bobby Garcia MD
== END 2018-08-17 16:41 | disposition home or self-care (01) | DRG 65 ==
LOC: ED 11:35 → 3N 14:50 → SUATTDRO 14:50
PROVIDERS: ATTEND Internal Medicine
CPT/HCPCS: 70450; 70553; 71010; 71045; 71260; 80048; 80053; 80061; 80101; 80301; 80307; 80324; 80345; 80346; 80353; 80358; 80361; 80365; 81001; 82378; 82948; 83992; 84484; 85025; 85610; 85730; 93005; 93010; 93306; 93880; 93970; 94640; 94761; 97161; A9270; A9579; G0431; G0434; G0479; G0480; J2270; J7030; Q9967; XXXXX